=== PATIENT | female | born 1940 | race Caucasian/White ===

== ENCOUNTER 2017-07-03 09:43 | Observation (INO) ==
[2017-07-03 10:06] LABS: Basophils % 0.3 %; Eosinophils # 0.1 K/mcL (0.0-0.6); Eosinophils % 1.1 %; Hematocrit 41.5 % (35.3-44.9); Hemoglobin 14.3 g/dL (11.5-15.4); Immature Granulocytes % 0.3 % (0-4); Lymphocytes # 1.7 K/mcL (0.6-4.6); Lymphocytes % 17.7 %; Mean Corpuscular HGB Conc 34.5 g/dL (31.6-35.5); Mean Corpuscular Hemoglobin 32.2 pg (28.0-33.3); Mean Corpuscular Volume 93.5 fL (83.0-100.0); Mean Platelet Volume 9.7 fL (9.4-12.4); Monocytes # 0.5 K/mcL (0.0-1.3); Monocytes % 4.6 %; Neutrophils # 7.4 K/mcL (1.6-8.9); Platelet Count 183 K/mcL (140-400); Red Blood Count 4.44 M/mcL (3.82-4.97); Red Cell Distribution Width 13.6 % (11.5-14.5)
--- NOTE | 2017-07-03 10:06 | Emergency Department Note ---
Disposition Clinical Impression: Chest pain, rule out acute myocardial infarction Disposition: Admitted As Inpatient Condition: Fair Time of Disposition: 10:43 Chest Pain HPI - General Chief Complaint: ED Chest Pain Stated Complaint: chest pain Time Seen by Provider: 07/03/17 09:47 Source: patient Mode of arrival: ambulatory Limitations: no limitations Vital Signs Reviewed: Yes Nursing Notes Reviewed: Yes - History of Present Illness HPI Narrative: Nontoxic-appearing 77-year-old female presents for evaluation of intermittent left-sided chest pain that has been ongoing for the past 2 days. She states that this is not out of the normal for her to have the left-sided chest pressure , however it is out of the ordinary for her nitroglycerin do not provide plenty and total relief. She states that she has taken nitroglycerin at home with only modest relief of symptoms. She did take 162 mg of aspirin this morning as well as a single nitroglycerin prior to her decision to come to the emergency department. This chest pain/pressure does radiate into the left upper extremity. It is associated with a mild degree of dyspnea on exertion. She denies any cough or hemoptysis. She denies any fevers but complains of chills. She denies any vomiting but complains of an event and episodes of nausea. She does state that she has broken out in episodes of diaphoresis during these past 2 days as well. She denies any swelling of the lower extremities. Pt complaint: chest pain Onset (ago): day(s) (2) Duration: intermittent Onset: during rest Pain Location: left chest Severity scale (1-10): 3 Quality: other (pressure) Pain Radiation: LUE Improves with: nitroglycerin Worsens with: exertion Associated symptoms: Reports: nausea, diaphoresis. Denies: vomiting, dyspnea, syncope, palpitations, fever, cough, leg swelling Treatments prior to arrival chest pain: aspirin, nitroglycerin - Related Data Home Medications Medication Instructions Recorded Confirmed Allopurinol [Zyloprim] 300 mg PO DAILY 07/03/17 07/03/17 Cyclobenzaprine [Flexeril] 10 mg PO HS 07/03/17 07/03/17 Fosinopril/Hydrochlorothiazide 1 tab PO DAILY 07/03/17 07/03/17 [Fosinopril-Hctz 10-12.5 mg Tab] Gabapentin [Neurontin] 300 mg PO TID 07/03/17 07/03/17 Metoprolol [Lopressor] 100 mg PO DAILY 07/03/17 07/03/17 Nitroglycerin [Nitrostat] 0.4 mg SL Q5M PRN 07/03/17 07/03/17 amLODIPine [Norvasc] 5 mg PO DAILY 07/03/17 07/03/17 Allergies Allergy/AdvReac Type Severity Reaction Status Date / Time Sulfa (Sulfonamide Allergy Rash Verified 07/03/17 10:29 Antibiotics) amiodarone AdvReac Nausea Verified 07/03/17 10:29 fenofibrate [From Tricor] AdvReac Nausea Verified 07/03/17 10:29 simvastatin AdvReac Nausea Verified 07/03/17 10:29 All systems ED: reviewed and negative except as stated. Constitutional: Denies: fever, chills, weakness, weight change Eyes: Denies: eye pain, eye discharge, vision change ENT ED: Denies: ear pain, throat pain, dental pain, hearing loss, epistaxis, congestion, dysphagia Cardiovascular: Reports: as per HPI, chest pain, dyspnea on exertion. Denies: palpitations, edema, syncope Respiratory: Denies: cough, dyspnea, wheezes, hemoptysis, stridor Gastrointestinal: Reports: as per HPI, nausea. Denies: abdominal pain, vomiting , diarrhea, constipation, hematemesis, melena, hematochezia Genitourinary: Denies: dysuria, frequency, hematuria, discharge Musculoskeletal: Denies: back pain, neck pain, arthralgia, myalgia Integumentary: Denies: rash, abrasion, lesions Neurological: Denies: headache, weakness, numbness, paresthesias, confusion, abnormal gait, vertigo Psychiatric: Denies: anxiety, depression, suicidal thoughts, homicidal thoughts , auditory hallucinations, visual hallucinations Endocrine: Denies: fatigue Hematological/Lymphatic: Denies: easy bleeding, easy bruising Allergic/Immunologic: Denies: facial swelling, urticaria Chest Pain PMH - Past Medical History Medical history: Reports: cardiomyopathy, coronary artery disease, hyperlipidemia, hypertension, renal disease Surgical history: Reports: cholecystectomy Psychiatric history: Reports: no psych history - Social History Smoking Status: Former smoker Drug use: Reports: none Physical Exam - General Limitations: no limitations General appearance: alert, in no apparent distress - Head Head exam: atraumatic, normocephalic, normal inspection - Eye Eye exam: Present: normal appearance, PERRL, EOMI. Absent: nystagmus - ENT ENT exam: mucous membranes moist - Neck Neck exam: Present: normal inspection, full ROM, trachea midline. Absent: lymphadenopathy - Chest Chest inspection: Present: normal inspection, symmetric chest wall rise. Absent : tenderness - Respiratory Respiratory exam: Present: normal lung sounds bilaterally. Absent: respiratory distress, wheezes, stridor, accessory muscle use, prolonged expiratory phase - Cardiovascular Cardiovascular exam: Present: regular rate, normal rhythm, normal heart sounds - Abdominal Exam Abdominal exam: Present: soft, Non-Tender, normal bowel sounds - Extremities Exam Extremities exam: Present: normal inspection, full ROM. Absent: tenderness, pedal edema - Neurological Exam Neurological exam: Present: alert, oriented X3 - Psychiatric Psychiatric exam: Present: normal affect, normal mood - Skin Skin exam: Present: warm, dry, intact, normal color Course Course Narrative: I have discussed this patient's case with Dr. Rylan Dorman. He agrees with admission to the hospitalist service for further evaluation of her chest pain rule out. 1040: I spoke with Dr. Romero of the hospitalist service who has accepted the patient for further evaluation and acute coronary syndrome rule out. Vital Signs Temperature 98.1 F 07/03/17 09:43 Pulse Rate 83 07/03/17 09:43 Respiratory Rate 16 07/03/17 09:43 Blood Pressure 154/86 07/03/17 09:43 O2 Sat by Pulse Oximetry 95 07/03/17 09:43 Temperature 97.7 F 07/03/17 18:59 Pulse Rate 88 07/03/17 18:59 Respiratory Rate 15 07/03/17 18:59 Blood Pressure 137/74 07/03/17 18:59 O2 Sat by Pulse Oximetry 97 07/03/17 18:59 Oxygen Delivery Oxygen Delivery Room Air Chest Pain - Medical Records Medical records reviewed: Yes I reviewed the patient's medical records. - Lab Data Lab results reviewed: Yes I reviewed the patient's lab results. Lab results narrative: Laboratory Last Values WBC 9.7 K/mcL (4.3-11.1) 07/03/17 09:51 RBC 4.44 M/mcL (3.82-4.97) 07/03/17 09:51 Hgb 14.3 g/dL (11.5-15.4) 07/03/17 09:51 Hct 41.5 % (35.3-44.9) 07/03/17 09:51 MCV 93.5 fL (83.0-100.0) 07/03/17 09:51 MCH 32.2 pg (28.0-33.3) 07/03/17 09:51 MCHC 34.5 g/dL (31.6-35.5) 07/03/17 09:51 RDW 13.6 % (11.5-14.5) 07/03/17 09:51 Plt Count 183 K/mcL (140-400) 07/03/17 09:51 MPV 9.7 fL (9.4-12.4) 07/03/17 09:51 Immature Gran % 0.3 % (0-4) 07/03/17 09:51 Seg Neutrophils % 76.0 % 07/03/17 09:51 Lymphocytes % 17.7 % 07/03/17 09:51 Monocytes % 4.6 % 07/03/17 09:51 Eosinophils % 1.1 % 07/03/17 09:51 Basophils % 0.3 % 07/03/17 09:51 Neutrophils # 7.4 K/mcL (1.6-8.9) 07/03/17 09:51 Lymphocytes # 1.7 K/mcL (0.6-4.6) 07/03/17 09:51 Monocytes # 0.5 K/mcL (0.0-1.3) 07/03/17 09:51 Eosinophils # 0.1 K/mcL (0.0-0.6) 07/03/17 09:51 Basophils # 0.0 K/mcL (0.0-0.2) 07/03/17 09:51 PT 12.5 Seconds (9.4-12.1) H 07/03/17 09:51 INR 1.2 07/03/17 09:51 APTT 28.4 Seconds (26.0-36.0) 07/03/17 09:51 Sodium 136 mEq/L (136-145) 07/03/17 09:51 Potassium 3.2 mEq/L (3.5-4.5) L 07/03/17 09:51 Chloride 101 mEq/L (98-109) 07/03/17 09:51 Carbon Dioxide 25 mEq/L (19-29) 07/03/17 09:51 BUN 22 mg/dL (7-20) H 07/03/17 09:51 Creatinine 1.08 mg/dL (0.57-1.11) 07/03/17 09:51 Est GFR ( Amer) 60 (> 60) 07/03/17 09:51 Est GFR (Non-Af Amer) 49 (> 60) L 07/03/17 09:51 BUN/Creatinine Ratio 20 (6-26) 07/03/17 09:51 Glucose 205 mg/dL (70-99) H 07/03/17 09:51 Calculated Osmolality 291 (280-300) 07/03/17 09:51 Calcium 10.7 mg/dL (8.6-10.8) 07/03/17 09:51 Troponin I 0.00 ng/mL (0-0.03) 07/03/17 09:51 Urine Color Yellow (Yellow) 07/03/17 10:16 Urine Clarity Cloudy (Clear) A 07/03/17 10:16 Urine pH 6.5 pH Units (5.0-8.0) 07/03/17 10:16 Ur Specific [place] 1.018 (1.010-1.025) 07/03/17 10:16 Urine Protein Trace mg/dL (Neg-Trace) 07/03/17 10:16 Urine Glucose (UA) Normal mg/dL (Normal) 07/03/17 10:16 Urine Ketones Negative mg/dL (Negative) 07/03/17 10:16 Urine Blood Negative (Negative) 07/03/17 10:16 Urine Nitrite Negative (Negative) 07/03/17 10:16 Urine Bilirubin Negative (Negative) 07/03/17 10:16 Urine Urobilinogen Normal mg/dL (Normal) 07/03/17 10:16 Ur Leukocyte Esterase Moderate (Negative) H 07/03/17 10:16 Urine Microscopic RBC 0-3 per hpf (0-3) 07/03/17 10:16 Urine Microscopic WBC 15-30 per hpf (0-3) H 07/03/17 10:16 Ur Squamous Epith Cells Many per lpf (None-Few) H 07/03/17 10:16 Urine Bacteria Many per hpf (None-Few) H 07/03/17 10:16 Hyaline Casts None Seen per lpf (None-Few) 07/03/17 10:16 Ur Culture Indicated? YES (NO) A 07/03/17 10:16 Result diagrams: 07/03/17 09:51 07/03/17 09:51 Lab Results 07/03/17 07/03/17 07/03/17 Range/Units 09:51 09:51 09:51 WBC 9.7 (4.3-11.1) K/mcL RBC 4.44 (3.82-4.97) M/mcL Hgb 14.3 (11.5-15.4) g/dL Hct 41.5 (35.3-44.9) % MCV 93.5 (83.0-100.0) fL MCH 32.2 (28.0-33.3) pg MCHC 34.5 (31.6-35.5) g/dL RDW 13.6 (11.5-14.5) % Plt Count 183 (140-400) K/mcL MPV 9.7 (9.4-12.4) fL Immature Gran % 0.3 (0-4) % Seg Neutrophils % 76.0 % Lymphocytes % 17.7 % Monocytes % 4.6 % Eosinophils % 1.1 % Basophils % 0.3 % Neutrophils # 7.4 (1.6-8.9) K/mcL Lymphocytes # 1.7 (0.6-4.6) K/mcL Monocytes # 0.5 (0.0-1.3) K/mcL Eosinophils # 0.1 (0.0-0.6) K/mcL Basophils # 0.0 (0.0-0.2) K/mcL PT 12.5 H (9.4-12.1) Seconds INR 1.2 APTT 28.4 (26.0-36.0) Seconds Sodium 136 (136-145) mEq/L Potassium 3.2 L (3.5-4.5) mEq/L Chloride 101 (98-109) mEq/L Carbon Dioxide 25 (19-29) mEq/L BUN 22 H (7-20) mg/dL Creatinine 1.08 (0.57-1.11) mg/dL Est GFR ( Amer) 60 (> 60) Est GFR (Non-Af Amer) 49 L (> 60) BUN/Creatinine Ratio 20 (6-26) Glucose 205 H (70-99) mg/dL Calculated Osmolality 291 (280-300) Calcium 10.7 (8.6-10.8) mg/dL Troponin I (0-0.03) ng/mL Urine Color (Yellow) Urine Clarity (Clear) Urine pH (5.0-8.0) pH Units Ur Specific [place] (1.010-1.025) Urine Protein (Neg-Trace) mg/dL Urine Glucose (UA) (Normal) mg/dL Urine Ketones (Negative) mg/dL Urine Blood (Negative) Urine Nitrite (Negative) Urine Bilirubin (Negative) Urine Urobilinogen (Normal) mg/dL Ur Leukocyte Esterase (Negative) Urine Microscopic RBC (0-3) per hpf Urine Microscopic WBC (0-3) per hpf Ur Squamous Epith Cells (None-Few) per lpf Urine Bacteria (None-Few) per hpf Hyaline Casts (None-Few) per lpf Ur Culture Indicated? (NO) 07/03/17 07/03/17 Range/Units 09:51 10:16 WBC (4.3-11.1) K/mcL RBC (3.82-4.97) M/mcL Hgb (11.5-15.4) g/dL Hct (35.3-44.9) % MCV (83.0-100.0) fL MCH (28.0-33.3) pg MCHC (31.6-35.5) g/dL RDW (11.5-14.5) % Plt Count (140-400) K/mcL MPV (9.4-12.4) fL Immature Gran % (0-4) % Seg Neutrophils % % Lymphocytes % % Monocytes % % Eosinophils % % Basophils % % Neutrophils # (1.6-8.9) K/mcL Lymphocytes # (0.6-4.6) K/mcL Monocytes # (0.0-1.3) K/mcL Eosinophils # (0.0-0.6) K/mcL Basophils # (0.0-0.2) K/mcL PT (9.4-12.1) Seconds INR APTT (26.0-36.0) Seconds Sodium (136-145) mEq/L Potassium (3.5-4.5) mEq/L Chloride (98-109) mEq/L Carbon Dioxide (19-29) mEq/L BUN (7-20) mg/dL Creatinine (0.57-1.11) mg/dL Est GFR ( Amer) (> 60) Est GFR (Non-Af Amer) (> 60) BUN/Creatinine Ratio (6-26) Glucose (70-99) mg/dL Calculated Osmolality (280-300) Calcium (8.6-10.8) mg/dL Troponin I 0.00 (0-0.03) ng/mL Urine Color Yellow (Yellow) Urine Clarity Cloudy A (Clear) Urine pH 6.5 (5.0-8.0) pH Units Ur Specific [place] 1.018 (1.010-1.025) Urine Protein Trace (Neg-Trace) mg/dL Urine Glucose (UA) Normal (Normal) mg/dL Urine Ketones Negative (Negative) mg/dL Urine Blood Negative (Negative) Urine Nitrite Negative (Negative) Urine Bilirubin Negative (Negative) Urine Urobilinogen Normal (Normal) mg/dL Ur Leukocyte Esterase Moderate H (Negative) Urine Microscopic RBC 0-3 (0-3) per hpf Urine Microscopic WBC 15-30 H (0-3) per hpf Ur Squamous Epith Cells Many H (None-Few) per lpf Urine Bacteria Many H (None-Few) per hpf Hyaline Casts None Seen (None-Few) per lpf Ur Culture Indicated? YES A (NO) - Radiology Data Radiology results reviewed: Yes I reviewed the patient's radiology results. Chest X-Ray 07/03/17 09:47 IMPRESSION: No acute cardiopulmonary abnormality. D/ / Syed High MD / Syed High MD Interpreting Provider: Syed High MD - EKG Data EKG attestation: Yes I reviewed and interpreted this EKG. EKG results narrative: EKG reviewed by Dr. Dorman as well. EKG shows a sinus rhythm with a borderline left axis deviation and nonspecific T wave abnormalities had a ventricular rate of 81 bpm. NE interval 191, QRS duration 105, QT/QTc interval 341/378. No STEMI. Of note, there are T-wave inversions in leads V4 and V5, which are new from her most recent EKG dated 03/14/13. Heart Score - Score History: Highly Suspicious EKG: Non Specific repolarisation Disturbance Age: Greater than 65 Risk Factors: Equal/Greater than 3 risk factor or history of atherosclerotic disease Troponin: Less than normal limit HEART Score Total: 7 Attestation Statement - Attestation Attestation: I, Terry Dorman, examined this patient and my medical decision-making was reviewed with the MAGAZINE JOURNALIST/PA/Advanced Practice Nurse/Resident Physician. I agree with the documented findings, disposition and treatment plan as described except to the extent set forth below. 77-year-old female presents to the emergency department with concerns of chest pain intermittently over the past 2 days. Patient states that generally her pain is treated well with nitroglycerin however it is no longer working. Patient has flipped T waves on EKG in leads V2, V3. Patient has negative initial troponin. She will be admitted to the hospital for further care and evaluation.
[2017-07-03 10:13] LABS: INR 1.2; Prothrombin Time 12.5 Seconds (9.4-12.1)
[2017-07-03 10:16] LABS: Activated Partial Thrombo Time 28.4 Seconds (26.0-36.0)
[2017-07-03 10:21] LABS: Calcium 10.7 mg/dL (8.6-10.8); Potassium 3.2 mEq/L (3.5-4.5)
[2017-07-03 10:36] LABS: Bilirubin,Urine Negative (Negative); Blood,Urine Negative (Negative); Clarity,Urine Cloudy (Clear); Color,Urine Yellow (Yellow); Glucose,Urine (UA) Normal (Normal); Ketones,Urine Negative (Negative); Leukocyte Esterase,Urine Moderate (Negative); Nitrite,Urine Negative (Negative); PH,Urine 6.5 pH Units (5.0-8.0); Protein,Urine Trace mg/dL (Neg-Trace); Specific Gravity,Urine 1.018 (1.010-1.025); Urobilinogen,Urine Normal (Normal)
[2017-07-03 10:38] LABS: Bacteria,Urine Many per hpf (None-Few); Hyaline Casts,Urine None Seen per lpf (None-Few); RBC,Urine 0-3 per hpf (0-3); Squamous Epithelial Cell,Urine Many per lpf (None-Few); WBC,Urine 15-30 per hpf (0-3)
[2017-07-03] MEDS ORDERED: Naloxone 0.4 MG/ML INJ IVP PRN (12:37)
[2017-07-03] MEDS ORDERED: Nitroglycerin 0.4 MG TAB.SUBL SL PRN (12:42)
--- NOTE | 2017-07-03 12:46 | Internal Med History&Physical ---
Date of Encounter: 07/04/17 Time of Encounter: 12:44 Assessment and Plan (1) Chest pain, rule out acute myocardial infarction Status: Acute 77/female Patient admitted with typical anginal chest pain. Patient was given sublingual nitroglycerin and the chest is was not completely responsive to the sublingual nitroglycerin. EKG: Non specific ST-T changes Plan: Admit as observation Aspirin/metoprolol/Lipitor. please note that patient has statin allergy Cycle troponin Cardiac diet Echocardiogram If the troponin negative/echocardiogram negative: Please consider stress test. If troponin positive/echocardiogram abnormal: Please get cardiology for further evaluation I have discussed this patient in the emergency room #16. I have discussed at length the plan with the patient and she verbalized understanding. Patient's both kids are Dr. and I offered her updated them regarding her condition but she feels comfortable to update her kids by herself. (2) Cardiomyopathy Status: Acute Patient was diagnosed cardiopathy more than 20 years back in [facility]. At that time the cardiac catheter was done. After that there was no cardiac Or any major workup done for the patient Qualifiers: Cardiomyopathy type: unspecified Qualified Code(s): I42.9 - Cardiomyopathy , unspecified (3) Hypertension Status: Acute Within acceptable range. Qualifiers: Hypertension type: essential hypertension Qualified Code(s): I10 - Essential (primary) hypertension (4) Hyperlipidemia Status: Acute A mixed picture of lipidemia. We will continue the same treatment which is taking from home Qualifiers: Hyperlipidemia type: unspecified Qualified Code(s): E78.5 - Hyperlipidemia , unspecified (5) DVT prophylaxis Status: Acute SCD Medical decision making: This patient has a moderate to severe risk of worsening in spite of being on appropriate treatment due to the underlying comorbid issues. Internal Medicine - H&P: HPI Chief complaint: Chest pressure Admitted From: Emergency Dept Plans for Post Hospital Care: Home History of present illness: 77/F PCP: DR Mcdermott cardiology: Dr Knight Brief PMH: CMP, CAD, HTN, Hyperlipidemia, CKDIII. HPI: Patient has ongoing chest pressure for past 2 days. Patient usually gets left shoulder pain in the left arm pain and she usually does not get chest pain at all. This time patient was experiencing chest pressure for past 2 days and which was not getting better even after she was taking sublingual nitroglycerin. His was really concerned for the patient. Patient was recently hospitalized for urosepsis and patient underwent through a lot of stress. Patient was complaining of chest heaviness which was basically substernal/left precordial location. Patient denies shortness of breath, nausea , abdominal pain, dizziness, diarrhea or dysuria. With this ongoing chest pressure patient decided to come to emergency room for further evaluation. Workup in the emergency room: Patient was evaluated in the emergency room. Basic labs were drawn. Noted that patient has hypokalemia. Also noted that patient has some dynamic EKG changes. Troponin was negative. Reason for hospitalization: Chest pressure to rule out ACS. Family history: Noncontributory Past Med Surg Social Fam HX - Past Medical History Medical history: cardiomyopathy, CHF, hyperlipidemia, hypertension, renal disease Psychiatric history: no psych history - Past Surgical History Surgical History: cholecystectomy, other - Social History Smoking Status: Never smoker Alcohol use: rarely Drug use: none Internal Medicine - H&P: Meds Allopurinol [Zyloprim] 300 mg PO DAILY 07/03/17 [History] Cyclobenzaprine [Flexeril] 10 mg PO HS 07/03/17 [History] Fosinopril/Hydrochlorothiazide [Fosinopril-Hctz 10-12.5 mg Tab] 1 tab PO DAILY 07/03/17 [History] Gabapentin [Neurontin] 300 mg PO TID 07/03/17 [History] Metoprolol [Lopressor] 100 mg PO DAILY 07/03/17 [History] Nitroglycerin [Nitrostat] 0.4 mg SL Q5M PRN 07/03/17 [History] amLODIPine [Norvasc] 5 mg PO DAILY 07/03/17 [History] Aspirin 81 mg PO DAILY #30 tab.chew 07/04/17 [Rx] Ciprofloxacin HCl [Cipro] 250 mg PO BID #6 tablet 07/04/17 [Rx] 3 Allergy/AdvReac Type Severity Reaction Status Date / Time Sulfa (Sulfonamide Allergy Rash Verified 07/03/17 10:29 Antibiotics) amiodarone AdvReac Nausea Verified 07/03/17 10:29 fenofibrate [From Tricor] AdvReac Nausea Verified 07/03/17 10:29 simvastatin AdvReac Nausea Verified 07/03/17 10:29 All Systems PM: A 10-system review of systems was performed and is negative for pertinent findings except as documented above in the HPI. - Constitutional Constitutional: no chills, no fever(s), no night sweats - EENT Eyes: no change in vision, no discharge, no pain, no photophobia Ears: no ear discharge, no ear pain, no tinnitus Nose, mouth and throat: no dysphagia, no nasal discharge, no neck pain, no sore throat - Cardiovascular Cardiovascular ROS IM: chest pain, diaphoresis, dyspnea, lightheadedness, no palpitations, no syncope - Respiratory Respiratory: no cough, no dyspnea, no wheezing, no excessive phlegm production - Gastrointestinal Gastrointestinal: no abdominal pain, no diarrhea, no hematemesis, no hematochezia, no melena, no nausea, no vomiting - Genitourinary Genitourinary: no change in urinary stream, no dysuria, no flank pain, no hematuria - Musculoskeletal Musculoskeletal ROS IM: no numbness, no tingling - Integumentary Integumentary IM: no rash, no unusual bruising - Neurological Neurological ROS: no confusion, no convulsions, no focal weakness, no numbness, no tingling, no tremor(s) - Hematologic/Lymphatic Hematologic/Lymphatic: no easy bruising - Constitutional Vitals: Temp Pulse Resp BP Pulse Ox 98.1 F 75 15 143/77 94 07/03/17 12:24 07/03/17 12:24 07/03/17 12:24 07/03/17 12:24 07/03/17 12:24 General appearance: Present: A&O X 3, pleasant, no acute distress, answers questions appropriately - Head Head exam: Present: atraumatic, normocephalic - Eye Eye exam: Present: PERRL, conjuntiva pink, sclera anicteric Pupils: Present: PERRL - Neck Neck exam general surgery: Present: supple, trachea midline. Absent: lymphadenopathy - Respiratory Respiratory exam: Present: CTAB. Absent: accessory muscle use, rales, rhonchi, wheezes - Cardiovascular Cardiovascular exam: Present: RRR, +S1, +S2. Absent: diastolic murmur, gallop, rubs, systolic murmur - GI/Abdominal GI/Abdominal exam: Present: normal bowel sounds, soft, no peritoneal signs. Absent: distended, tenderness - Extremities Exam Extremities exam: Present: warm, radial pulses palpable and symmetrical. Absent : calf tenderness, cyanotic, pedal edema - Neurological Exam Neurological exam: Present: CN II-XII intact, oriented X3, no focal deficits. Absent: pronater drift, facial droop, speech deficit - Skin Skin exam: Present: dry, intact Internal Med - H&P Results - Labs CBC & Chem 7: 07/04/17 00:25 07/04/17 00:25
[2017-07-03] MEDS: Gabapentin 300 MG CAPSULE PO SCH ×2 (15:42→21:49)
[2017-07-03] MEDS: Aspirin Enteric Coated 81 MG Tablet PO SCH (21:48)
[2017-07-04 00:54] LABS: Basophils % 0.3 %; Eosinophils # 0.2 K/mcL (0.0-0.6); Eosinophils % 2.3 %; Hematocrit 39.8 % (35.3-44.9); Hemoglobin 13.6 g/dL (11.5-15.4); Immature Granulocytes % 0.3 % (0-4); Lymphocytes # 2.8 K/mcL (0.6-4.6); Lymphocytes % 30.8 %; Mean Corpuscular HGB Conc 34.2 g/dL (31.6-35.5); Mean Corpuscular Hemoglobin 32.3 pg (28.0-33.3); Mean Corpuscular Volume 94.5 fL (83.0-100.0); Monocytes # 0.7 K/mcL (0.0-1.3); Monocytes % 7.4 %; Neutrophils # 5.3 K/mcL (1.6-8.9); Platelet Count 164 K/mcL (140-400); Red Blood Count 4.21 M/mcL (3.82-4.97); Red Cell Distribution Width 13.6 % (11.5-14.5); Segmented Neutrophils % 58.9 %
[2017-07-04 00:59] LABS: INR 1.1; Prothrombin Time 11.8 Seconds (9.4-12.1)
[2017-07-04 01:02] LABS: Activated Partial Thrombo Time 27.7 Seconds (26.0-36.0)
[2017-07-04 01:11] LABS: Alanine Aminotransferase 20 Units/L (0-55); Albumin 3.6 g/dL (3.5-5.0); Albumin/Globulin Ratio 1.1 (1.1-2.2); Alkaline Phosphatase 64 Units/L (38-126); Aspartate Amino Transferase 19 Units/L (5-34); BUN/Creatinine Ratio 27 (6-26); Bilirubin,Total 0.4 mg/dL (0.2-1.2); Blood Urea Nitrogen 23 mg/dL (7-20); Calcium 10.2 mg/dL (8.6-10.8); Carbon Dioxide 29 mEq/L (19-29); Chloride 105 mEq/L (98-109); Chol/HDL Ratio 4.3 (0-4.9); Cholesterol 130 mg/dL (< 200); Globulin 3.2 g/dL (2.4-3.5); Glucose 137 mg/dL (70-99); HDL Cholesterol 30 mg/dL (40-59); LDL Cholesterol,Calculated 52 mg/dL (0-99); Magnesium 1.5 mg/dL (1.6-2.6); Osmolality,Calculated 298 (280-300); Phosphorous 2.7 mg/dL (2.3-4.7); Potassium 3.8 mEq/L (3.5-4.5); Sodium 141 mEq/L (136-145); Total Protein 6.8 g/dL (6.0-8.3); Triglycerides 240 mg/dL (< 150); eGFR For African Americans > 60 (> 60); eGFR For Non-African Americans > 60 (> 60)
[2017-07-04] MEDS ORDERED: Regadenoson 0.4 MG/5 ML SYRINGE IVP ONE (07:00)
[2017-07-04] MEDS ORDERED: amLODIPine 5 MG TABLET PO SCH (09:00)
[2017-07-04] MEDS ORDERED: Metoprolol 100 MG TABLET PO SCH (09:00)
[2017-07-04] MEDS: Aspirin Enteric Coated 81 MG Tablet PO SCH (09:31)
[2017-07-04] MEDS: Gabapentin 300 MG CAPSULE PO SCH ×2 (09:31→14:00)
[2017-07-04 11:26] VITALS: BP 119/69
--- NOTE | 2017-07-04 11:55 | Discharge Summary ---
Date of Encounter: 07/04/17 Time of Encounter: 11:55 - Discharge Diagnosis (1) Chest pain Priority: Primary Status: Acute Comments: with reported episode of chest pain that started day of presentation. Serial troponins negative, EKG without acute ST changes.negative, EKG with nonspecific T-wave abnormality, no ischemic changes. TTE with EF 55%, moderate diastolic dysfunction and and atypical septal motion consistent with bundle branch block. Stress test negative for infarct, ischemia. Chest without intervention. Suspect musculoskeletal etiology as patient cares for her who was recently in the ICU is now requiring mhczdw-rxw-gasis care. Continue ASA, follow-up with cardiology outpatient. Qualifiers: Chest pain type: unspecified Qualified Code(s): R07.9 - Chest pain, unspecified (2) Cardiomyopathy Priority: Primary Status: Acute Comments: per hx. 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 EF over 20 years ago with a 19% and improved to 45%. TTE with EF 55%, mild diastolic dysfunction, normal left ventricular size and function. Appears euvolemic. Follow-up with cardiology outpatient. Qualifiers: Cardiomyopathy type: unspecified Qualified Code(s): I42.9 - Cardiomyopathy , unspecified (3) Hypertension Priority: Primary Status: Acute Qualifiers: Hypertension type: essential hypertension Qualified Code(s): I10 - Essential (primary) hypertension (4) Abnormal urinalysis Priority: Primary Status: Acute Comments: UA indicative of UTI. Received 1 time dose IV Rocephin. Discharge home on Cipro. Follow culture and no ATB accordingly. - Discharge Medications Prescriptions: Aspirin 81 mg PO DAILY #30 tab.chew Ciprofloxacin HCl [Cipro] 250 mg PO BID #6 tablet Home Medications: Allopurinol [Zyloprim] 300 mg PO DAILY 07/03/17 [History] Cyclobenzaprine [Flexeril] 10 mg PO HS 07/03/17 [History] Fosinopril/Hydrochlorothiazide [Fosinopril-Hctz 10-12.5 mg Tab] 1 tab PO DAILY 07/03/17 [History] Gabapentin [Neurontin] 300 mg PO TID 07/03/17 [History] Metoprolol [Lopressor] 100 mg PO DAILY 07/03/17 [History] Nitroglycerin [Nitrostat] 0.4 mg SL Q5M PRN 07/03/17 [History] amLODIPine [Norvasc] 5 mg PO DAILY 07/03/17 [History] Aspirin 81 mg PO DAILY #30 tab.chew 07/04/17 [Rx] Ciprofloxacin HCl [Cipro] 250 mg PO BID #6 tablet 07/04/17 [Rx] Allergies/Adverse Reactions: 3 Allergy/AdvReac Type Severity Reaction Status Date / Time Sulfa (Sulfonamide Allergy Rash Verified 07/03/17 10:29 Antibiotics) amiodarone AdvReac Nausea Verified 07/03/17 10:29 fenofibrate [From Tricor] AdvReac Nausea Verified 07/03/17 10:29 simvastatin AdvReac Nausea Verified 07/03/17 10:29 Procedures/tests Complete & Pending: Procedures Performed prior 72 hours Category Date Time Status NM taniya perf SPECT multi [NM] Routine Exams 07/03/17 20:13 Taken EV echocardiogram Routine Y 07/03/17 12:42 Completed SP pharm nuclear stress Routine Y 07/04/17 07:10 Completed Date of admission: 07/03/17 10:50 Primary care physician: Brianne Dumont Discharging clinician: Caitlin Martin Anticipated date of discharge: 07/04/17 - Patient Status Disposition: Home, Self-Care Condition: Good Functional capacity at discharge: independent ambulation Overall status at discharge: patient is back to baseline - Discharge Instructions Instructions: Chest Pain (DC) Follow Up With: [facility] [Provider Group] (Tanja Pastrana will be calling you with an appointment. Thank you!!) Carina Mcdermott DO [Primary Care Provider] - 07/11/17 9:30 am - Diet and Activity Activity: increase activity as tolerated Diet: advance to your usual diet Interval History: Seen and examined at bedside. Patient is new to me, information obtained from chart review and patient report. Patient says she feels back to baseline, no further chest pain. She thinks maybe she may have overdone it caring for her who was recently discharged from the hospital and now requiring 24-hour care. No chest pain or shortness of breath. Hospital course: See assessment and plan for hospital course. - Time Spent with Patient Total time spent providing and/or coordinating discharge services: - Constitutional Vitals: Temp Pulse Resp BP Pulse Ox 98.2 F 79 16 119/69 95 07/04/17 11:25 07/04/17 11:25 07/04/17 11:25 07/04/17 11:25 07/04/17 11:25 General appearance: Present: A&O X 3, pleasant, no acute distress, answers questions appropriately - Head Head exam: Present: atraumatic, normocephalic - Eye Eye exam: Present: PERRL, conjuntiva pink, sclera anicteric Pupils: Present: PERRL - Neck Neck exam general surgery: Present: supple, trachea midline. Absent: lymphadenopathy - Respiratory Respiratory exam: Present: CTAB. Absent: accessory muscle use, rales, rhonchi, wheezes - Cardiovascular Cardiovascular exam: Present: RRR, +S1, +S2. Absent: diastolic murmur, gallop, rubs, systolic murmur - GI/Abdominal GI/Abdominal exam: Present: normal bowel sounds, soft, no peritoneal signs. Absent: distended, tenderness - Extremities Exam Extremities exam: Present: warm, radial pulses palpable and symmetrical. Absent : calf tenderness, cyanotic, pedal edema - Neurological Exam Neurological exam: Present: CN II-XII intact, oriented X3, no focal deficits. Absent: pronater drift, facial droop, speech deficit - Skin Skin exam: Present: dry, intact
[2017-07-04] MEDS ORDERED: cefTRIAXone 1,000 MG in Water for inj. (sterile) 10 ML IVP SCH (13:00)
--- NOTE | 2017-07-06 15:43 | Electrocardiograph Report ---
[place] [id number] Test Date: 2017-07-03 Pat Name: Milena Bhandari Department: 103 Room: 3B38 Gender: F Manager Engagement: ROSE MARIE : 1940 Requested By: Darien Conn Order Number: [id number] Reading MD: Terry Pascual Measurements Intervals [place] Rate: 81 P: 42 MO: 191 QRS: -24 QRSD: 105 T: 15 QT: 341 QTc: 378 Interpretive Statements SINUS RHYTHM BORDERLINE LEFT AXIS DEVIATION LATERAL T-WAVE ABNORMALITY Electronically Signed On 07-06-2017 15:41:16 EST by Terry Pascual
--- NOTE | 2017-07-06 16:15 | Electrocardiograph Report ---
[place] [id number] Test Date: 2017-07-04 Pat Name: Milena Bhandari Department: 113 Room: 3B Gender: F Assembler Installer General: : 1940 Requested By: Caitlin Martin Order Number: [id number] Reading MD: Terry Pascual Measurements Intervals [place] Rate: 83 P: 55 IN: 201 QRS: -26 QRSD: 100 T: -3 QT: 352 QTc: 392 Interpretive Statements SINUS RHYTHM BORDERLINE LEFT AXIS DEVIATION VOLTAGE CRITERIA FOR LVH INFEROLATERAL T-WAVE ABNORMALITY Electronically Signed On 07-06-2017 16:13:29 EST by Terry Pascual
== END 2017-07-04 14:58 | disposition home or self-care (01) ==
LOC: EMEROO 09:43 → 3BNU 09:43
PROVIDERS: ADMIT Internal Medicine; ATTEND Registered Nurse